=== PATIENT | female | born 1945 | race Caucasian/White ===

== ENCOUNTER → 2018-01-10 | Outpatient (CLI) | payer OTHER, MEDICARE ==
[~2018-01-10] MED LIST: COUMADIN 5 MG TA5 M1 PO; NOHOMEMEDICATIONS; OMEGA-31000 M1 PO; PERCOCET 10-321 EACH PO; SYMBICORT160 MCG/4. INH; TOPROL XL25 MG PO; XARELTO10 MG PO
== END ==
LOC: RAD 07:45
DX: R10.9 Unspecified abdominal pain (principal); Z90.49 Acquired absence of other specified parts of digestive tract

== ENCOUNTER → 2019-05-08 | Outpatient (CLI) | payer OTHER | LOC: CAT 14:31 | DX: Z13.6 Encounter for screening for cardiovascular disorders (principal); E78.00 Pure hypercholesterolemia, unspecified; I25.10 Atherosclerotic heart disease of native coronary artery without angina pectoris ==

== ENCOUNTER → 2020-01-21 | Outpatient (CLI) | payer OTHER, MEDICARE | LOC: CAT 15:00 | PROVIDERS: ATTEND Nurse Practitioner | DX: H53.131 Sudden visual loss, right eye (principal) ==